=== PATIENT | male | born 1995 | race African-American/Black ===

== ENCOUNTER → 2019-07-10 09:44 | Outpatient (CLI) | payer OTHER, SELFPAY ==
--- NOTE | 2019-07-10 | DI.MRI.S_ITS ---
PROCEDURE: MR HEAD/BRAIN WO/W CON INDICATIONS: Other fatigue TECHNIQUE: Noncontrast axial T1 spin echo, axial T2 fast spin echo, sagittal and axial FLAIR, coronal T2 fast spin echo, axial gradient echo, axial diffusion and ADC through the brain. After the administration of contrast, axial and coronal 3D VIBE or T1 spin echo with fat saturation through the brain. COMPARISON: None. FINDINGS: Image quality: Motion degraded examination. CSF Spaces: Basal cisterns are patent. No extra-axial fluid collections. Ventricles are normal in size and shape. Brain: No midline shift. No intracranial bleeds or masses. No abnormal intracranial enhancement. The brainstem appears normal. Diffusion-weighted images demonstrate no acute ischemic insults. No chronic ischemic insults. Normal intravascular flow voids are present. Skull and face: Calvarial marrow is normal in signal. Orbits appear normal. Left maxillary sinus mucous retention cyst or polyp. IMPRESSION: Motion degraded examination. Within those constraints, no evidence of acute ischemia. No acute intracranial signal abnormality or enhancement. Left maxillary sinus mucus retention cyst or polyp Dictated by: Prem Jones M.D. on 07/10/2019 at 11:12 Approved by: Prem Jones M.D. on 07/10/2019 at 11:20
== END ==
PROVIDERS: Visit Provider Family Medicine
DX: R53.83 Other fatigue (principal)
CPT/HCPCS: 70553

== ENCOUNTER 2019-09-14 05:31 | Emergency (ER) | payer OTHER, SELFPAY ==
[2019-09-14 05:38] VITALS: BP 134/74; PULSE 72; RESP 16; TEMP 36.6; O2SAT 97
--- NOTE | 2019-09-14 06:05 | ED.WEAKNESS ---
HPI - Weakness General Chief complaint: Weakness Stated complaint: FATIGUE/DISORIENTED/BLACK SPOTS ON SKIN Time Seen by Provider: 09/14/19 05:33 Source: patient Mode of arrival: Ambulatory Limitations: no limitations History of Present Illness HPI Narrative: 24-year-old male smoker [employer] [place] presents with a chief complaint of upwards of 3 years of gradually worsening insomnia which is contributing to fatigue and cloudy thoughts. He has had extensive evaluation including multiple physician visits, lab evaluations MRI any even sleep studies. He has cycle through various sleep regimens starting with melatonin, Benadryl and escalating to Seroquel and now trazodone. He states he is having increasing difficulty coping and is becoming frustrated and concerned that something more significant is going on. He denies any suicidal or homicidal ideation. He denies any auditory or visual hallucinations. He denies use of street drugs. He denies any family history of psychiatric illness and states that he does not feel depressed or anxious. He states that he has been developing abnormal spots on the soles of his feet, 1 of which on his right foot is painful and white, while the others are dark. He states that he develops these other spots at other parts of his body that are coming and going with no apparent pattern. He does have an appointment with dermatology in a few weeks which he is thankful for MD Complaint: generalized weakness Onset (ago): year(s) Location: generalized Relieving factors: none Exacerbating factors: none Review of Systems Constitutional Constitutional: Denies chills, Reports difficulty sleeping, Denies fatigue, Denies fever(s), Denies frequent falls, Denies lethargy and Denies weakness Eyes Eyes: Denies change in vision, Denies eye discharge, Denies irritation and Denies loss of vision ENT Ears, Nose, Mouth, and Throat: Denies change in voice, Denies dizziness, Denies neck pain, Denies sore throat and Denies throat swelling Cardiovascular Cardiovascular: Denies chest pain, Denies irregular heart rhythm, Denies lightheadedness, Denies palpitations, Denies dyspnea, Denies dyspnea on exertion and Denies orthopnea Respiratory Respiratory: Denies cough, Denies dyspnea, Denies dyspnea on exertion and Denies wheezing Gastrointestinal Gastrointestinal: Denies abdominal pain, Denies change in bowel habits, Denies diarrhea, Denies nausea and Denies vomiting Genitourinary Genitourinary: Denies hematuria, Denies flank pain, Denies urinary incontinence and Denies urinary urgency Musculoskeletal Musculoskeletal: Denies back pain, Denies muscle weakness, Denies neck pain, Denies numbness and Denies tingling Integumentary/Breasts Skin/Breast: Reports change in pigmentation, Denies pruritus, Reports new lesions, Denies erythema, Denies rash, Reports skin pain, Denies wounds and Reports other Neurologic Neurologic: Denies behavioral changes, Denies confusion, Denies dizziness, Denies frequent falls, Denies loss of vision, Denies numbness, Denies tingling and Denies weakness Psychiatric Psychiatric: Denies anxiety, Denies behavioral changes, Denies confusion, Denies depression, Denies homicidal ideation and Denies suicidal ideation Endocrine Endocrine: Denies fatigue, Denies flushing and Denies palpitations Hematologic/Lymphatic Hematologic/Lymphatic: Denies easy bruising Allergic/Immunologic Allergic/Immunologic: Denies urticaria, Denies throat swelling and Denies wheezing Patient History Social History Smoking Status: Current every day smoker Smoking Status: Current every day smoker Substance Use Type: does not use Exam Narrative Exam Narrative: GENERAL: [24] year old patient appears stated age. Well-nourished, well-developed patient, in mild distress. HEAD: Atraumatic. Normocephalic. EYES: Pupils equal round and reactive. Extraocular motions intact. No scleral icterus. No injection or drainage. ENT: Nose without bleeding, purulent drainage. Throat without erythema, tonsillar hypertrophy or exudate. Airway patent. NECK: Trachea midline. Non tender CARDIOVASCULAR: Regular rate and rhythm without murmurs, gallops, or rubs. RESPIRATORY: Clear to auscultation. Breath sounds equal bilaterally. No wheezes, rales, or rhonchi. GASTROINTESTINAL: Abdomen soft, non-tender, nondistended. EXTREMITIES: No edema or joint tenderness. BACK: Nontender without deformity or crepitance. No flank tenderness. NEURO: AOx3. SKIN: Multiple small darkly pigmented flat, painless lesions on the plantar surface of bilateral feet. On the plantar surface of his right foot he has a tender scaling indurated lesion consistent with a plantar wart. There is no erythema, fluctuance or exudate No rash or erythema of visible areas Initial Vital Signs Initial Vital Signs: Vital Signs Temperature 97.9 F 09/14/19 05:38 Pulse Rate 72 12/27/19 05:38 Respiratory Rate 16 09/14/19 05:38 Blood Pressure 134/74 09/14/19 05:38 Pulse Oximetry 97 09/14/19 05:38 Course Vital Signs Vital signs: Vital Signs - 8 hr 09/14/19 05:38 Temperature 97.9 F Pulse Rate 72 Respiratory Rate 16 Blood Pressure 134/74 Pulse Oximetry 97 MDM - Weakness MDM Narrative Medical decision making narrative: intensive discussion with this patient regarding the history and multiple evaluations of his complaints. Multiple etiologies including electrolyte abnormality, infectious, neurologic, mental health, tox and others considered. There is no indication of an emergent or life-threatening condition that requires immediate intervention at this point time. I offered to perform labs but the patient states he just had them done in the never show anything. He is grateful for the care but refuses anything an ongoing fashion. He denies any suicidal or homicidal ideation. He has got good follow-up and understands return precautions. Discharge Plan Departure Patient Disposition: Home Clinical Impression: Plantar wart, Skin lesion of foot Fatigue Qualifiers: Fatigue type: chronic, unspecified Qualified Code(s): R53.82 - Chronic fatigue, unspecified Discharge Date/Time: 09/14/19 06:08 Instructions: Plantar Warts, DI for Fatigue Activity Restrictions/Additional Instructions: *You have been diagnosed with [ chronic fatigue, plantar wart, nonspecific skin lesions ] *What to do: *Continue to take medications as directed *Follow up with your primary care provider in 2-3 days, call for an appointment. Let them know you were seen in the Emergency Department and that we ask that you be seen in follow up. Follow up with Dermatology as planned *Return to ER if you should have any new, worsening or concerning symptoms
== END 2019-09-14 06:08 | disposition home or self-care (01) ==
PROVIDERS: Emergency Provider Emergency Medicine
DX: R53.82 Chronic fatigue, unspecified (principal); B07.0 Plantar wart; L98.9 Disorder of the skin and subcutaneous tissue, unspecified
CPT/HCPCS: 99281; 99282

== ENCOUNTER → 2022-01-28 11:42 | Outpatient (CLI) | payer OTHER, SELFPAY ==
--- NOTE | 2022-01-28 12:30 | DI.CT.S_ITS ---
PROCEDURE: CT ABDOMEN PELVIS W CON INDICATIONS: Nocturnal enuresis TECHNIQUE: After the administration of oral and IV contrast, axial sections were acquired from the lung bases to the pubic symphysis. Coronal and sagittal reformats were performed. For radiation dose reduction, the following was used: automated exposure control, adjustment of mA and/or kV according to patient size. COMPARISON: Outside Film, CT, CT ABDOMEN PELVIS WITHOUT CONTRAST, 08/04/2021, 5:09. FINDINGS: Image quality: Excellent. Lung bases: Unremarkable. Heart: No significant findings. ABDOMEN: Liver: Unremarkable. Gallbladder: Unremarkable. Biliary ducts: Unremarkable. Pancreas: Unremarkable. Spleen: Unremarkable. Adrenal Glands: Unremarkable. Kidneys and Ureters: Unremarkable. Stomach and Bowel: No evidence of intestinal obstruction or inflammatory change. Moderate stool burden in the ascending and transverse colon. The appendix appears normal. Peritoneum: No abnormal intraperitoneal fluid. No free air. Ventral Wall: Trace fat containing periumbilical hernia. Abdominal Nodes: No retroperitoneal or mesenteric adenopathy by size criteria. Vessels: Aorta and inferior vena cava are normal in size. PELVIS: Pelvic Organs: Unremarkable. Bladder: Unremarkable. Pelvic Nodes: No enlarged lymph nodes. Miscellaneous: No inguinal hernias are seen. Bones: Unremarkable. IMPRESSION: 1. No significant abnormality. Dictated by: Dexter Doyle M.D. on 01/28/2022 at 13:17 Approved by: Dexter Doyle M.D. on 01/28/2022 at 13:30
== END ==
PROVIDERS: PCP Family Medicine; Referring Provider Urology; Visit Provider Urology
DX: N50.82 Scrotal pain (principal); N39.44 Nocturnal enuresis
CPT/HCPCS: 74177